=== PATIENT | male | born 1950 | race Caucasian/White ===

== ENCOUNTER 2019-11-05 13:56 | Outpatient (CLI) | payer MEDICARE, SELFPAY ==
--- NOTE | ~2019-11-05 | US_ITS ---
EXAMINATION: US carotid duplex BI DATE: 11/05/2019 16:39 INDICATION: Subjective visual disturbance. TECHNIQUE: Grayscale, color Doppler, and pulsed Doppler images of the cervical carotid arteries were obtained. The degree of vessel stenosis is placed in one of the following categories: normal, <50%, 5 0-69%, >=70% but less than near-occlusion, near-occlusion, or total occlusion. Note that percent sten osis relative to normal distal artery lumen diameter is indirectly measured from velocity measurement s as described by Melo, et al. Radiology 2003; 229:340-346. COMPARISON: None. FINDINGS: Cardiac arrhythmia is present. RIGHT: The right common carotid artery (CCA) peak systolic velocity (PSV) is 81 cm/s. There is complete occl usion of the right internal carotid artery with no discernible internal flow on color Doppler. The ex ternal carotid artery (ECA) PSV is 495 cm/s. There is antegrade flow in the right vertebral artery. LEFT: The left CCA PSV is 112 cm/s. There is complete occlusion of the left internal carotid artery with no discernible internal flow on color Doppler. The ECA PSV is 147 cm/s. There is antegrade flow in the left vertebral artery. IMPRESSION: 1. 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 Reviewed, dictated and finalized at location A.
[2019-11-05 14:13] LABS: Basophils Absolute Auto 0.05 K/mm3 (0.00-0.10); Basophils Percent Auto 0.7 % (0.0-1.0); Eosinophils Absolute Auto 0.29 K/mm3 (0.02-0.50); Hematocrit 43.7 % (37.0-46.0); Hemoglobin 14.4 g/dL (12.4-15.3); Immature Granulocyte Absolute 0.02 K/mm3 (0.00-0.00); Immature Granulocyte Percent A 0.3 % (0.0-0.0); Lymphocytes Absolute Auto 1.49 K/mm3 (1.10-4.50); Lymphocytes Percent Auto 20.6 % (18.0-42.0); Mean Corpuscular Hemoglobin 31.8 pg (27.0-31.0); Mean Corpuscular Volume 96.5 fL (78.0-102.0); Mean Platelet Volume 10.8 fl (8.7-11.0); Monocytes Absolute Auto 0.61 K/mm3 (0.10-0.90); Monocytes Percent Auto 8.4 % (2.0-11.0); Neutrophils Absolute Auto 4.8 K/mm3 (1.7-7.2); Platelet Count Result 207 K/mm3 (150-420); Red Blood Count 4.53 M/mm3 (4.70-6.10); Red Cell Distribution Width 13.2 % (11.6-14.4); White Blood Count 7.2 K/mm3 (4.8-10.8)
[2019-11-05 15:05] LABS: Alanine Aminotransferase 19 U/L (16-63); Alkaline Phosphatase 79 U/L (46-116); Aspartate Amino Transferase 15 U/L (15-37); Bilirubin,Total 0.5 mg/dL (0.00-1.00); Blood Urea Nitrogen 12 mg/dL (7-18); Carbon Dioxide 30 mmol/L (21-32); Chloride 102 mmol/L (98-108); Cholesterol 226 mg/dL (0-200); Estimated Glomerular Filt Rate > 60; Glucose 98 mg/dL (70-99); HDL Direct 46 mg/dL (40-60); LDL Cholesterol Calculated 160 mg/dL (<130); Osmolality Calculated 291 mOsm/kg (285-295); Sodium 141 mmol/L (136-145); Total Protein 7.2 g/dL (6.4-8.2); Triglycerides 102 mg/dL (0-150)
== END 2019-11-05 13:57 | disposition home or self-care (01) ==
PROVIDERS: PCP Nurse Practitioner Family; Visit Provider Nurse Practitioner Family
DX: I65.23 Occlusion and stenosis of bilateral carotid arteries (principal); Z01.818 Encounter for other preprocedural examination
CPT/HCPCS: 36415; 80053; 80061; 85025; 93880

== ENCOUNTER 2019-11-24 07:38 | Outpatient (CLI) | payer MEDICARE, SELFPAY ==
--- NOTE | ~2019-11-24 | CT_ITS ---
EXAMINATION: CTA neck DATE: 11/24/2019 08:34 INDICATION: Occlusion and stenosis of unspecified carotid artery. TECHNIQUE: Computed tomographic angiography (CTA) of the neck was performed with 100 mL Omnipaque-350 intravenous contrast. Automated exposure control and iterative reconstruction technique were employe d. The dose-length product was 597.34 mGy-cm. Maximum intensity projection 3D-reconstructions were cr eated by the technologist on a separate workstation. COMPARISON: Ultrasound 11/05/2019 FINDINGS: There is mild emphysema. There are no pathologically enlarged lymph nodes. There is total o cclusion of right vertebral artery with distal reconstitution. There is mild stenosis of left vertebr al artery proximally. There is total occlusion of right cervical internal carotid artery with reconst itution in the ophthalmic segment. There is mild stenosis of left common carotid artery. There is tot al occlusion of cervical left internal carotid artery with reconstitution in the flow in the petrous segment. There is mild cervical spondylosis. IMPRESSION: 1. 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 Reviewed, dictated and finalized at location A. IMPRESSION: 1. Total occlusion of both cervical internal carotid arteries and the right cornelius tebral artery.
== END 2019-11-24 07:39 | disposition home or self-care (01) ==
LOC: CHSIMG 07:41
PROVIDERS: PCP Nurse Practitioner Family; Visit Provider Internal Medicine Cardiovascular Disease
DX: I65.29 Occlusion and stenosis of unspecified carotid artery (principal)
CPT/HCPCS: 70498; Q9965

== ENCOUNTER 2020-02-02 08:30 | Outpatient (CLI) | payer MEDICARE, SELFPAY ==
[2020-02-02 09:25] LABS: Alanine Aminotransferase 25 U/L (16-63); Albumin Level 4.1 g/dL (3.4-5.0); Alkaline Phosphatase 79 U/L (46-116); Anion Gap 6 mmol/L (8-16); Aspartate Amino Transferase 14 U/L (15-37); Bilirubin,Total 0.6 mg/dL (0.00-1.00); Blood Urea Nitrogen 9 mg/dL (7-18); Calcium 8.9 mg/dL (8.5-10.1); Carbon Dioxide 30 mmol/L (21-32); Chloride 106 mmol/L (98-108); Cholesterol 154 mg/dL (0-200); Estimated Glomerular Filt Rate > 60; Glucose 109 mg/dL (70-99); HDL Direct 80 mg/dL (40-60); LDL Cholesterol Calculated 59 mg/dL (<130); Osmolality Calculated 293 mOsm/kg (285-295); Potassium 3.9 mmol/L (3.5-5.1); Sodium 142 mmol/L (136-145); Total Protein 7.2 g/dL (6.4-8.2); Triglycerides 74 mg/dL (0-150)
== END 2020-02-02 08:31 | disposition home or self-care (01) ==
LOC: CHSLAB 08:33
PROVIDERS: PCP Nurse Practitioner Family; Visit Provider Internal Medicine Cardiovascular Disease
DX: E78.5 Hyperlipidemia, unspecified (principal)
CPT/HCPCS: 36415; 80053; 80061

== ENCOUNTER 2021-02-20 14:35 | Outpatient (CLI) | payer MEDICARE, SELFPAY ==
--- NOTE | 2021-02-20 14:43 | ECG_ITS ---
Measurements Intervals [place] Rate: 60 P: 83 FL: 147 QRS: 79 QRSD: 107 T: 77 QT: 385 QTc: 385 Interpretive Statements SINUS RHYTHM SUPRAVENTRICULAR BIGEMINY DELAYED PRECORDIAL R/S TRANSITION BASELINE WANDER- I, AVL BORDERLINE ECG Electronically Signed On 02-20-2021 15:52:56 CDT by Regulo Winchester D.O.
== END 2021-02-20 14:36 | disposition home or self-care (01) ==
PROVIDERS: PCP Nurse Practitioner Family; Visit Provider Internal Medicine Cardiovascular Disease
DX: Z01.810 Encounter for preprocedural cardiovascular examination (principal)
CPT/HCPCS: 93005

== ENCOUNTER 2021-02-21 08:11 | Outpatient (CLI) | payer MEDICARE, SELFPAY ==
[2021-02-21 09:06] LABS: Alanine Aminotransferase 39 U/L (16-63); Albumin Level 3.9 g/dL (3.4-5.0); Alkaline Phosphatase 72 U/L (46-116); Anion Gap 8 mmol/L (8-16); Aspartate Amino Transferase 21 U/L (15-37); Bilirubin,Total 0.7 mg/dL (0.00-1.00); Blood Urea Nitrogen 17 mg/dL (7-18); Calcium 9.4 mg/dL (8.5-10.1); Carbon Dioxide 31 mmol/L (21-32); Chloride 105 mmol/L (98-108); Cholesterol 119 mg/dL (0-200); Estimated Glomerular Filt Rate > 60; Glucose 90 mg/dL (70-99); HDL Direct 59 mg/dL (40-60); LDL Cholesterol Calculated 50 mg/dL (<130); Osmolality Calculated 299 mOsm/kg (285-295); Sodium 144 mmol/L (136-145); Total Protein 7.1 g/dL (6.4-8.2); Triglycerides 48 mg/dL (0-150)
== END 2021-02-21 08:12 | disposition home or self-care (01) ==
LOC: CHSLAB 08:13
PROVIDERS: PCP Nurse Practitioner Family; Visit Provider Internal Medicine Cardiovascular Disease
DX: E78.5 Hyperlipidemia, unspecified (principal)
CPT/HCPCS: 36415; 80053; 80061

== ENCOUNTER 2022-02-22 09:30 | Outpatient (CLI) | payer MEDICARE, SELFPAY ==
[2022-02-22 10:15] LABS: Alanine Aminotransferase 31 U/L (16-63); Albumin Level 4.3 g/dL (3.4-5.0); Alkaline Phosphatase 83 U/L (46-116); Anion Gap 10 mmol/L (8-16); Aspartate Amino Transferase 23 U/L (15-37); Bilirubin,Total 0.6 mg/dL (0.00-1.00); Blood Urea Nitrogen 15 mg/dL (7-18); Calcium 9.5 mg/dL (8.5-10.1); Carbon Dioxide 29 mmol/L (21-32); Chloride 103 mmol/L (98-108); Cholesterol 145 mg/dL (0-200); Estimated Glomerular Filt Rate > 60; Glucose 98 mg/dL (70-99); HDL Direct 77 mg/dL (40-60); LDL Cholesterol Calculated 60 mg/dL (<130); Osmolality Calculated 294 mOsm/kg (285-295); Potassium 3.8 mmol/L (3.5-5.1); Sodium 142 mmol/L (136-145); Total Protein 7.7 g/dL (6.4-8.2); Triglycerides 42 mg/dL (0-150)
== END 2022-02-22 09:31 | disposition home or self-care (01) ==
LOC: CHSLAB 09:33
PROVIDERS: PCP Family Medicine; Visit Provider Internal Medicine Cardiovascular Disease
DX: E78.5 Hyperlipidemia, unspecified (principal)
CPT/HCPCS: 36415; 80053; 80061

== ENCOUNTER 2022-09-13 09:30 | Outpatient (CLI) | payer MEDICARE, SELFPAY ==
[2022-09-13 10:21] LABS: Prostate Specific Antigen 5.2 ng/mL (< OR = 4.0)
== END 2022-09-13 09:31 | disposition home or self-care (01) ==
LOC: CHSLAB 09:32
PROVIDERS: PCP Nurse Practitioner Family; Visit Provider Nurse Practitioner Family
DX: Z12.5 Encounter for screening for malignant neoplasm of prostate (principal)
CPT/HCPCS: 36415; 84153; G0103

== ENCOUNTER 2023-02-19 09:13 | Outpatient (CLI) | payer MEDICARE, SELFPAY ==
[2023-02-19 09:57] LABS: Alanine Aminotransferase 24 U/L (16-63); Alkaline Phosphatase 78 U/L (46-116); Anion Gap 11 mmol/L (8-16); Aspartate Amino Transferase 18 U/L (15-37); Bilirubin,Total 0.4 mg/dL (0.00-1.00); Blood Urea Nitrogen 16 mg/dL (7-18); Calcium 9.4 mg/dL (8.5-10.1); Carbon Dioxide 28 mmol/L (21-32); Chloride 106 mmol/L (98-108); Cholesterol 140 mg/dL (0-200); Estimated Glomerular Filt Rate > 60; Glucose 83 mg/dL (70-99); HDL Direct 69 mg/dL (40-60); LDL Cholesterol Calculated 67 mg/dL (<130); Osmolality Calculated 300 mOsm/kg (285-295); Potassium 4.3 mmol/L (3.5-5.1); Sodium 145 mmol/L (136-145); Total Protein 7.4 g/dL (6.4-8.2); Triglycerides 22 mg/dL (0-150)
== END 2023-02-19 09:14 | disposition home or self-care (01) ==
LOC: CHSLAB 09:15
PROVIDERS: PCP Nurse Practitioner Family; Visit Provider Internal Medicine Cardiovascular Disease
DX: E78.5 Hyperlipidemia, unspecified (principal)
CPT/HCPCS: 36415; 80053; 80061

== ENCOUNTER 2024-03-31 10:01 | Outpatient (CLI) | payer MEDICARE, SELFPAY ==
[2024-03-31 11:15] LABS: Alanine Aminotransferase 49 U/L (16-63); Alkaline Phosphatase 78 U/L (46-116); Anion Gap 8 mmol/L (4-12); Aspartate Amino Transferase 42 U/L (15-37); Bilirubin,Total 0.5 mg/dL (0.00-1.00); Blood Urea Nitrogen 20 mg/dL (7-18); Calcium 9.3 mg/dL (8.5-10.1); Carbon Dioxide 30 mmol/L (21-32); Chloride 105 mmol/L (98-108); Cholesterol 154 mg/dL (0-200); Estimated Glomerular Filt Rate > 60; Glucose 89 mg/dL (70-99); HDL Direct 70 mg/dL (40-60); LDL Cholesterol Calculated 78 mg/dL (<130); Osmolality Calculated 297 mOsm/kg (285-295); Potassium 4.2 mmol/L (3.5-5.1); Sodium 143 mmol/L (136-145); Total Protein 7.3 g/dL (6.4-8.2); Triglycerides 31 mg/dL (0-150)
== END 2024-03-31 10:02 | disposition home or self-care (01) ==
PROVIDERS: PCP Nurse Practitioner Family; Visit Provider Internal Medicine Cardiovascular Disease
DX: E78.5 Hyperlipidemia, unspecified (principal)
CPT/HCPCS: 36415; 80053; 80061

== ENCOUNTER 2025-04-26 13:37 | Outpatient (CLI) | payer MEDICARE, SELFPAY ==
[2025-04-26 14:24] LABS: Alanine Aminotransferase 31 U/L (6-50); Albumin Level 4.7 g/dL (3.5-5.1); Alkaline Phosphatase 87 U/L (38-126); Anion Gap 8 mmol/L (4-12); Aspartate Amino Transferase 39 U/L (17-59); Bilirubin,Total 0.5 mg/dL (0.2-1.3); Blood Urea Nitrogen 20 mg/dL (9-20); Calcium 9.7 mg/dL (8.4-10.2); Carbon Dioxide 30 mmol/L (22-30); Chloride 106 mmol/L (98-107); Cholesterol 146 mg/dL (0-200); Estimated Glomerular Filt Rate > 60; Glucose 89 mg/dL (65-110); HDL Direct 86 mg/dL; Osmolality Calculated 299 mOsm/kg (285-295); Potassium 4.5 mmol/L (3.4-5.0); Sodium 144 mmol/L (137-145); Total Protein 7.8 g/dL (6.3-8.2); Triglycerides 47 mg/dL (<150)
[2025-04-26 14:55] LABS: Thyroid Stimulating Hormone Reflex > 100.000 uIU/mL (0.465-4.68)
--- OUTSIDE RECORDS SUMMARY | 2025-04-26 15:24 | XMS_ITS | Clinical Summary ---
Author Organization [facility] Address [address] [place] [id number] Care Team Providers Care Customer Facilities Supervisor Name Role Phone Unavailable Primary Care Provider Unavailabl e Social History Tobacco Use Types Packs/Day Years Used Date Smoking Tobacco: Never Assessed Sex and Gender Information Value Date Recorded Sex Assigned at Not on file Legal Sex Male 4:24 PM CDT Gender Identity Not on file Sexual Orientation Not on file Plan of Treatment Health Maintenance Due Date Last Done Comments Colorectal Cancer Screening Colonoscopy (10 Years) 1950 Hepatitis C 1970 DTaP, Tdap and Td Vaccines ( 1 - Tdap) 11/04/1971 Pneumococcal Vaccine: 50+ Ye ars (1 of 1 - PCV) 2002 Zoster Vaccines (1 of 2) 2002 COVID-19 Vaccine ( - 2024-2 6 season) 2025 Influenza Adult (#1) 2025 RSV Immunization or 60+ Years (1 - 1-dose 75+ series) 11/04/2027 Hepatitis A Vaccines Aged Out No long er eligible based on patient's age to complete this topic Meningococcal B Vaccine Aged Out No l onger eligible based on patient's age to complete this topic Meningococcal Vaccine Aged Out No ewelina natalia eligible based on patient's age to complete this topic RSV Immunizations Under 20 Months Aged Out No longer eligible based on patient's age to complete this topic
[2025-04-26 15:27] LABS: Free T4 Free Thyroxine Reflex 0.40 ng/dL (0.78-2.19)
== END 2025-04-26 13:38 | disposition home or self-care (01) ==
PROVIDERS: PCP Nurse Practitioner Family; Visit Provider Internal Medicine Cardiovascular Disease
DX: E78.5 Hyperlipidemia, unspecified (principal)
CPT/HCPCS: 36415; 80053; 80061; 84439; 84443